=== PATIENT | female | born 1970 | race American Indian/Alaskan Native ===

== ENCOUNTER 2017-03-25 19:34 | Emergency (ER) | payer OTHER, BC ==
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
[2017-03-26] MEDS ORDERED: MOTRIN PO ONE (01:01)
[2017-03-26] MEDS ORDERED: NORCO 5/325 PO ONE (01:01)
[2017-03-26] MEDS ORDERED: ZOFRAN ODT PO ONE (01:01)
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
[2017-03-26] MEDS ORDERED: FLEXERIL PO ONE (02:34)
[2017-03-26 07:14] VITALS: BP 107/63
== END 2017-03-26 02:50 | disposition home or self-care (01) ==
LOC: ED 19:34
DX: M25.512 Pain in left shoulder (principal); M54.6 Pain in thoracic spine; V49.49XA Driver injured in collision with other motor vehicles in traffic accident, initial encounter; X58.XXXA Exposure to other specified factors, initial encounter; Y93.89 Activity, other specified; Y92.89 Other specified places as the place of occurrence of the external cause; Y99.8 Other external cause status
CPT/HCPCS: 72040; 81025; Q0162